=== PATIENT | male | born 1995 | race Caucasian/White ===

== ENCOUNTER 2016-12-21 20:37 | Emergency (ER) | payer OTHER ==
[~2016-12-21] VITALS: Ht 190.5 cm; Wt 70.3 kg
[2016-12-21 20:45] VITALS: BP 131/74
--- NOTE | 2016-12-21 21:07 | ED ANKLE/FOOT INJURY COMPLAINT ---
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 ALLERGY TO MOTRIN REFUSES TYLENOL. SL SWELLING NOTED. Triage Nurses Notes Reviewed? yes Occurred: just prior to arrival Duration: hour(s): (2) Timing: single episode today Severity: mild, moderate Pain/Injury Location: Left: Ankle. No Modifying Factors: none Associated Symptoms: swelling HPI: This is a 21-year-old male who presents to the chief complaint of left ankle pain and swelling after missing the last step on the way down. He states he rolled his ankle and fell down. Denies any trauma or loss of consciousness. He has been ambulatory on it ever since but complains of swelling. Past History Travel History Traveled to [place] past 21 day No Medical History Any Pertinent Medical History? see below for history Neurological: NONE EENT: NONE Cardiovascular: NONE Respiratory: NONE Gastrointestinal: NONE Hepatic: NONE Renal: NONE Musculoskeletal: NONE Psychiatric: NONE Endocrine: NONE Surgical History Surgical History: none Psychosocial History What is your primary language Korean Tobacco Use: Never used Family History Hx Contributory? No Review of Systems Review of Systems Constitutional: Denies: chills, fever. EENTM: Reports: no symptoms. Respiratory: Denies: cough, short of breath. Cardiovascular: Denies: chest pain. GI: Reports: no symptoms. Genitourinary: Reports: no symptoms. Musculoskeletal: Reports: joint pain, joint swelling. Denies: muscle stiffness. Skin: Reports: no symptoms. Neurological/Psychological: Reports: no symptoms. Hematologic/Endocrine: Denies: bruising, bleeding, polyuria, polydipsia. Immunologic/Allergic: Reports: no symptoms. All Other Systems: Reviewed and Negative Physical Exam Physical Exam General Appearance: well developed/nourished, mild distress Head: atraumatic Eyes: Bilateral: PERRL, EOMI. Ears, Nose, Throat: normal pharynx, normal ENT inspection, hearing grossly normal Neck: normal inspection, supple Cardiovascular/Respiratory: regular rate/rhythm Back: normal inspection Leg/Knee/Thigh Left: normal range of motion, normal inspection Leg/Knee/Thigh Right: normal range of motion, normal inspection Ankle Left: pain, swelling Ankle Right: normal inspection, normal range of motion Foot Left: normal inspection, normal range of motion Foot Right: normal inspection, normal range of motion Neuro/Vascular: normal motor function, normal sensation Psychiatric: awake, alert, oriented x 3 Skin: intact, normal color, warm/dry Progress Differential Diagnosis: fracture, dislocation, sprain Plan of Care: Orders Procedure Date/time Status XRY-FOOT COMPLETE, LEFT 12/21 2046 Active XRY-ANKLE 3 OR MORE VIEWS L 12/21 2046 Active Diagnostic Imaging: Viewed by Me: Radiology Read. Discussed w/RAD: Radiology Read. Radiology Impression: PATIENT: KELSEY FOY PRESENT AGE: 21 PATIENT ACCOUNT NO: [id number] : 94 LOCATION: [facility] ORDERING PHYSICIAN: LENNOX BROOKS MD SERVICE DATE: 12/21/16 EXAM TYPE: RAD - XRY -ANKLE 3 OR MORE VIEWS L; XRY-FOOT COMPLETE, LEFT EXAMINATION: XR ANKLE, LEFT XR FOOT, LEFT CLINICAL INFORMATION: Left ankle and left foot pain. Sprain. COMPARISON: No relevant prior studies are available for comparison. TECHNIQUE: AP, lateral, and mortise views of the left ankle as well as AP, oblique, and lateral views of the left foot were obtained. FINDINGS: LEFT ANKLE: No fracture. The ankle mortise is well-maintained. No joint space narrowing. No marginal osteophytes. No osseous erosion. No abnormal soft tissue calcification. Prominent lateral soft tissue swelling. No significant ankle joint effusion. LEFT FOOT: No fracture. No dislocation. No joint space narrowing. No marginal osteophytes. No osseous erosion. No abnormal soft tissue calcification. IMPRESSION: Left ankle: Prominent lateral soft tissue swelling without an associated osseous abnormality. Left foot: No fracture. DICTATED BY: CLARISSA STARK MD DATE/TIME DICTATED:12/21/162116 CARRY IN WORKER:DIANA DATE/TIME TRANSCRIBED:12/21/162116 CONFIDENTIAL, DO NOT COPY WITHOUT APPROPRIATE AUTHORIZATION. <Electronically signed in Other Vendor System> SIGNED BY: CLARISSA STARK MD 12/21/162132 Departure Departure Time of Disposition: 2134 Disposition: HOME OR SELF CARE Condition: Stable Clinical Impression Primary Impression: Left ankle sprain Referrals: UNKNOWN (PCP/Family) Additional Instructions: ICE, REST AND ELEVATE THE ANKLE TAKE TYLENOL NEEDED FOR PAIN FOLLOW UP WITH YOUR DOCTOR IN THE OFFICE RETURN NEEDED Departure Forms: Customer Survey General Discharge Information Prescriptions: Current Visit Scripts No Known Home Medications Procedures Splinting Location: LEFT ANKLE KNUTSON WRAP Splint Applied By: splint applied by me Pre-Proc Neuro Vasc Exam: normal Post-Proc Neuro Vasc Exam: normal
--- NOTE | 2016-12-21 21:33 | RADIOLOGY REPORT ---
EXAMINATION: XR ANKLE, LEFT XR FOOT, LEFT CLINICAL INFORMATION: Left ankle and left foot pain. Sprain. COMPARISON: No relevant prior studies are available for comparison. TECHNIQUE: AP, lateral, and mortise views of the left ankle as well as AP, oblique, and lateral views of the left foot were obtained. FINDINGS: LEFT ANKLE: No fracture. The ankle mortise is well-maintained. No joint space narrowing. No marginal osteophytes. No osseous erosion. No abnormal soft tissue calcification. Prominent lateral soft tissue swelling. No significant ankle joint effusion. LEFT FOOT: No fracture. No dislocation. No joint space narrowing. No marginal osteophytes. No osseous erosion. No abnormal soft tissue calcification. IMPRESSION: Left ankle: Prominent lateral soft tissue swelling without an associated osseous abnormality. Left foot: No fracture.
== END 2016-12-21 21:37 ==
LOC: ERH 20:37
DX: S93.402A Sprain of unspecified ligament of left ankle, initial encounter (principal); X58.XXXA Exposure to other specified factors, initial encounter; Y92.9 Unspecified place or not applicable; Y93.9 Activity, unspecified
CPT/HCPCS: 73610-LT; 73630-LT